=== PATIENT | female | born 2005 | race Caucasian/White ===

== ENCOUNTER 2024-08-14 12:24 | Emergency (ER) | payer BC, MEDICAID ==
[~2024-08-14] VITALS: Ht 154.9 cm; Wt 56.7 kg
[2024-08-14 13:07] LABS: BASO # 0.1 10*3/uL (0.0-0.1); BASO % 0.9 % (0.0-1.0); EOS # 0.3 10*3/uL (0.0-0.4); EOS % 4.1 % (1.0-4.0); HEMATOCRIT 39.4 % (37.0-47.0); MEAN CELL VOLUME 88.9 fl (81.0-99.0); MEAN CORPUSCULAR HGB 28.7 pg (27.0-31.0); MEAN CORPUSCULAR HGB CONC 32.2 g/dl (33.0-37.0); MEAN PLATELET VOLUME 11.5 fl (9.6-12.3); MONO # 0.6 10*3/uL (0.1-1.0); MONO % 8.2 % (3.0-9.0); NEUT # 4.2 10*3/uL (2.3-7.9); NEUT % 60.8 % (47.0-73.0); PLATELET COUNT AUTOMATED 221 10*3/uL (130-400); RED BLOOD COUNT 4.43 10*6/uL (4.10-5.10); RED CELL DISTRI WIDTH 12.9 % (0-14.5); WHITE BLOOD COUNT 6.9 10*3/uL (4.8-10.8)
[2024-08-14 13:24] LABS: BUN 12 mg/dl (9-23); CHLORIDE 107 mmol/L (98-107); POTASSIUM 3.5 mmol/L (3.4-5.1)
[2024-08-14 13:29] LABS: ACT PARTIAL THROMBO TIME 26.8 SECONDS (20.0-32.1)
[2024-08-14] MEDS ORDERED: SODIUM CHLORIDE 0.9% 100 ML BAG IV ONE (13:40)
[2024-08-14] MEDS ORDERED: IOHEXOL 350 MG/ML 100 ML VIAL IV ONE (13:40)
== END 2024-08-14 16:22 | disposition home or self-care (01) ==
LOC: ED 12:24
PROVIDERS: Nurse Practitioner Family
DX: R07.89 Other chest pain (principal); E04.1 Nontoxic single thyroid nodule; R16.1 Splenomegaly, not elsewhere classified